=== PATIENT | female | born 1975 | race Caucasian/White ===

== ENCOUNTER 2023-09-23 14:23 | Emergency (ER) | payer BC ==
[2023-09-23] MEDS ORDERED: CYCLOBENZAPRINE HCL 10 MG TABLET (FP) PO ONE (15:39)
[2023-09-23] MEDS ORDERED: predniSONE 20 MG TABLET (UD) PO ONE (15:39)
[2023-09-23] MEDS ORDERED: LIDOCAINE 4% PATCH TP ONE ×2 (15:39→15:50)
[2023-09-23] MEDS ORDERED: ACETAMINOPHEN 500 MG TABLET (FP) PO ONE (15:39)
[2023-09-23] MEDS ORDERED: CYCLOBENZAPRINE HCL 10 MG TABLET (FP) ONE (15:49)
[2023-09-23] MEDS ORDERED: ACETAMINOPHEN 500 MG TABLET (FP) ONE (15:49)
[2023-09-23] MEDS ORDERED: predniSONE 20 MG TABLET (UD) ONE (15:49)
[2023-09-23 16:02] VITALS: BP 136/79; PULSE 80; RESP 18; TEMP 98; BMI 33.6
[2023-09-23] MEDS ORDERED: LIDOCAINE PATCH REMOVAL MC ONE (22:00)
== END 2023-09-23 16:32 | disposition home or self-care (01) ==
LOC: JERFT 14:23
DX: M54.31 Sciatica, right side (principal); M54.9 Dorsalgia, unspecified; M79.604 Pain in right leg; M25.69 Stiffness of other specified joint, not elsewhere classified; R20.2 Paresthesia of skin
CPT/HCPCS: 99283-25